=== PATIENT | female | born 1960 | race Caucasian/White ===

== ENCOUNTER 2025-03-07 12:15 | Emergency (ER) | payer MEDICARE ==
[~2025-03-07] VITALS: Ht 175.3 cm; Wt 149.7 kg
[2025-03-07] MEDS ORDERED: methylPREDNISolone SOD SUCC 125 MG/2ML VIAL ONE (12:22)
[2025-03-07] MEDS ORDERED: ALBUTEROL FS 2.5 MG/3 ML VIAL.NEB CONTNEB ONE (12:30)
[2025-03-07] MEDS ORDERED: methylPREDNISolone SOD SUCC 125 MG/2ML VIAL IV ONE (12:30)
[2025-03-07] MEDS ORDERED: IPRATROPIUM NEB FS 0.5 MG/2.5 ML AMPUL.NEB NEB ONE (12:30)
[2025-03-07 12:50] LABS: ABG OXYGEN SATURATION 95.2 % (94.0-98.0); ABG PCO2 38.5 mmHg (32.0-45.0); ABG PH 7.433 (7.350-7.450); ABG PO2 77.2 mmHg (83.0-108.0); ABG TOTAL HEMOGLOBIN 13.7 G/dL (12.0-16.0); COHb 0.1 % (0.5-1.5); MetHb 0.3 % (0.0-1.5); O2Hb 94.8 % (94.0-97.0); SITE, ABG RIGHT RADIAL
[2025-03-07 12:53] LABS: BASOPHILS # (AUTO) 0.1 K/uL (0.0-0.2); BASOPHILS % (AUTO) 0.4 % (0.0-2.0); EOSINOPHILS # (AUTO) 0.1 K/uL (0.0-0.7); HEMATOCRIT 40 % (33-45); HEMOGLOBIN 13.2 g/dL (11.5-14.8); LYMPHOCYTES # (AUTO) 1.5 K/uL (0.8-4.8); LYMPHOCYTES % (AUTO) 13.4 % (20.0-44.0); MEAN CORPUSCULAR HEMOGLOBIN 26 PG (26.0-33.0); MEAN CORPUSCULAR HGB CONC 33 g/dl (31.0-36.0); MEAN CORPUSCULAR VOLUME 78 fL (82-100); MONOCYTES # (AUTO) 0.7 K/uL (0.1-1.30); MONOCYTES % (AUTO) 6.6 % (2.0-12.0); NEUTROPHILS % (AUTO) 78.6 % (43.0-81.0); PLATELET COUNT (AUTO) 278 K/uL (150-450); RED BLOOD CELL COUNT(AUTO) 5.08 MIL/uL (4.0-5.2); RED CELL DISTRIBUTION WIDTH 16.4 % (11.5-15.0); WHITE BLOOD COUNT (AUTO) 11.4 K/uL (4.3-11.0)
[2025-03-07 13:05] LABS: CARBON DIOXIDE 30 mmol/L (21-32); CHLORIDE 99 mmol/L (98-107); CREATININE 0.7 mg/dL (0.6-1.3); GLUCOSE 161 mg/dL (74-106); POTASSIUM 4.1 mmol/L (3.5-5.1); SODIUM SERUM 138 mmol/L (136-145); UREA NITROGEN, BLOOD 24 mg/dL (7-18)
[2025-03-07 13:13] LABS: LACTIC ACID 1.4 mmol/L (0.4-2.0)
[2025-03-07] MEDS ORDERED: FURO-145 PO (14:23)
[2025-03-07 14:32] VITALS: BP 158/75; TEMP 98; O2SAT 98
== END 2025-03-07 14:31 | disposition home or self-care (01) ==
LOC: ER 12:31
DX: I11.0 Hypertensive heart disease with heart failure (principal); I50.9 Heart failure, unspecified; R06.02 Shortness of breath; Z20.822 Contact with and (suspected) exposure to COVID-19
CPT/HCPCS: 36415; 36600; 71045-TC; 80048-TC; 82803-TC; 83605-TC; 83880; 84484-TC; 85025-TC; 87040-TC; J2919